=== PATIENT | female | born 1955 ===

== ENCOUNTER 2016-12-19 07:15 | Day surgery (SDC) | payer OTHER ==
[2016-12-19] MEDS ORDERED: Lactated Ringer's 500 ML IV ONE (07:49)
[2016-12-19 08:38] VITALS: TEMP 96.8
[2016-12-19] MEDS ORDERED: Propofol 10 mg/ml Inj (20 ML) ONE (08:45)
[2016-12-19 09:22] VITALS: O2SAT 100
[2016-12-19 09:37] VITALS: BP 125/54; PULSE 80; RESP 14
== END 2016-12-19 09:41 | disposition home or self-care (01) ==
LOC: H.ENDO 07:15
PROVIDERS: ATTEND Internal Medicine Gastroenterology
DX: Z12.11 Encounter for screening for malignant neoplasm of colon (principal); E78.5 Hyperlipidemia, unspecified; K64.8 Other hemorrhoids

== ENCOUNTER 2018-07-19 09:10 | Day surgery (SDC) | payer MEDICAID ==
[2018-07-19 09:41] VITALS: BMI 31.4
[2018-07-19 10:46] VITALS: RESP 18
[2018-07-19] MEDS ORDERED: Lidocaine 1% Inj (20ml) ONE ×2 (10:50→12:41)
[2018-07-19] MEDS ORDERED: Lactated Ringer's 1,000 ML IV ONE ×2 (12:00→14:40)
[2018-07-19] MEDS ORDERED: ceFAZolin IV 1 gm in Dextrose 2 GM/100 ML BAG IVPB ONE (12:41)
[2018-07-19] MEDS ORDERED: Bupivacaine HCl 0.25% PF (30 ml) Inj ONE (12:41)
[2018-07-19] MEDS ORDERED: Propofol 10 mg/ml Inj (20 ML) ONE (13:51)
[2018-07-19] MEDS ORDERED: Midazolam 2 MG/2 ML VIAL ONE (13:51)
[2018-07-19] MEDS ORDERED: Rocuronium 10 mg/ml (5 ml) ONE (13:52)
[2018-07-19] MEDS ORDERED: Succinylcholine 200 mg/10 ml Inj IV ONE (13:52)
[2018-07-19] MEDS ORDERED: Sodium Chloride 0.9% 10 ML IV ONE (13:57)
[2018-07-19] MEDS ORDERED: ePHEDrine 50 mg/ml Inj ONE (13:57)
--- NOTE | 2018-07-19 15:18 | MAM ---
Date of service: 07/19/2018 HISTORY: Patient is 62-year-old female with right breast mass previously biopsied presenting for mammographically guided right breast needle localization preoperatively. TECHNIQUE/FINDINGS: Following full discussion of risks and benefits of the procedure with the patient including alternatives, patient freely gave written consent. Timeout was called for ultrasound guided wire needle localization procedure for lesion in the lateral right breast. The mass was identified in both craniocaudal and medial lateral projections with the lateral approach selected for the procedure. Following sonographic identification of the lesion in question, maximum sterile barrier protection was provided to the skin overlying the lesion. 0.5 cc of lidocaine was utilized for skin anesthesia and 4 cc of lidocaine was utilized for deep tissue anesthesia. A 7.5 cm needle was placed through the region of the biopsy clip and confirmed in position by craniocaudal projection. Subsequently, a wire was placed through the needle with the needle removed deploying the stiffener notch at the biopsy clip level. Confirmation of wire placement was made by direct lateral projection and the wire was properly secured using sterile bandaging. Patient tolerated the procedure well and no complications occurred. Specimen radiograph demonstrates biopsy clip and lesion within central specimen volume which was immediately communicated Dr. Calderón in the operating room by telephone. IMPRESSION: Status post subtotal needle wire localization of right breast mass with good result as demonstrated in specimen radiograph.
[2018-07-19] MEDS ORDERED: HYDROmorphone 0.5 mg/0.5 ml ISec ONE (15:48)
[2018-07-19] MEDS ORDERED: Oxycodone/Acetaminophen 5/325 mg Tab PO PRN (16:12)
--- NOTE | 2018-07-19 16:17 | CP.SDSHP ---
Same Day Surgery H & P - Allergies Allergies: Allergies No Known Allergies Allergy (Verified 06/10/17 12:30) - Physical Exam Vital Signs: Vital Signs 07/19/18 07/19/18 07/19/18 10:00 10:40 15:10 Temperature 98 F 96.8 F L Pulse Rate 68 63 88 Respiratory 18 18 Rate Blood Pressure 108/71 142/77 O2 Sat by Pulse 100 100 Oximetry 07/19/18 07/19/18 07/19/18 15:25 15:40 15:55 Temperature 97.2 F L Pulse Rate 78 79 77 Respiratory 18 18 18 Rate Blood Pressure 130/72 124/73 124/69 O2 Sat by Pulse 100 100 100 Oximetry Short Stay Discharge - Short Stay Discharge Admitting Diagnosis/Reason for Visit: N63 Disposition: HOME/ ROUTINE Referrals: Elma Calderón MD [Staff Provider] - Follow-up: 1) Please follow up with Dr. Calderón in 2 weeks 2) Please take medications as prescribed Instructions: Lumpectomy Progress Note/Discharge Note with Instructions: Patient stable in PACU, minimal pain. Dressing CDI. Ready to be Discharged. Please follow the instructions.
[2018-07-19 17:47] VITALS: PULSE 79
--- NOTE | 2018-07-19 18:09 | PCM.SURG1 ---
Surgeon's Initial Post Op Note - Surgeon's Notes Surgeon: Marybel Calderón Heliotherapist: none Type of Anesthesia: General Endo Anesthesia Administered By: Dr Meléndez Pre-Operative Diagnosis: R breast papilloma Operative Findings: Biopsy marker noted within center of specimen Post-Operative Diagnosis: R breast papilloma Operation Performed: R breast lumpectomy with needle localization Specimen/Specimens Removed: Breast tissue lateral R breast Estimated Blood Loss: EBL {In ML}: 10 Blood Products Given: N/A Drains Used: No Drains Post-Op Condition: Good Date of Surgery/Procedure: 07/19/18 Time of Surgery/Procedure: 18:09
[2018-07-19 19:04] VITALS: BP 121/62; TEMP 97.9; O2SAT 95
--- NOTE | 2018-07-20 05:11 | OP ---
PROCEDURE DATE: 07/19/2018 SURGEON: Elma Calderón MD ANESTHESIA: General. ANESTHESIA ADMINISTERED BY: Dr. Meléndez. PREOPERATIVE DIAGNOSIS: Right breast papilloma. POSTOPERATIVE DIAGNOSIS: Right breast papilloma. PROCEDURE: Right breast lumpectomy with needle localization. DESCRIPTION OF OPERATION: With the patient in the supine position under adequate general anesthesia, the right breast was prepped and draped in the usual sterile manner. The patient was noted to have a radiologically placed hookwire exiting from the lateral portion of the right breast, and after examination of the x-ray images, the transverse incision was made extending medially from the entry point of the hookwire. A core of breast tissue was then excised surrounding the wire in a medial direction with tissue being removed deep, superficial, and above and below the wire out to the tip, which was near the areolar margin. The wire was not visualized in the deep portion of the breast and the massive, primarily fatty and fibrous, breast tissue was excised with a combination of sharp dissection and cautery. The specimen was marked with a long suture on the superficial aspect and a short suture on the superior aspect and the wire itself exiting laterally. The specimen was sent to Radiology for confirmation that the marker had been removed and then to Pathology. The operative site was examined for hemostasis. Small bleeders were cauterized, and closure was performed with running subcuticular suture of 4-0 Monocryl and Steri-Strips. Dry sterile dressing was applied. The patient tolerated the procedure well and was transferred to the recovery room in stable condition. Estimated blood loss for the procedure was 10 mL. Elma Calderón MD
== END 2018-07-19 19:50 | disposition home or self-care (01) ==
LOC: H.OPSURG 09:10
PROVIDERS: ATTEND Specialist
DX: N62 Hypertrophy of breast (principal); E11.9 Type 2 diabetes mellitus without complications; E78.5 Hyperlipidemia, unspecified; I10 Essential (primary) hypertension; K21.9 Gastro-esophageal reflux disease without esophagitis; D24.1 Benign neoplasm of right breast
CPT/HCPCS: 19281; 19301; 82948; 88307; J0330; J0690; J1170; J2001; J2250; J2405; J2704; J3010; J7120